=== PATIENT | male | born 1970 | race Caucasian/White ===

== ENCOUNTER 2017-08-28 09:40 | Emergency (ER) | payer BC ==
[~2017-08-28] VITALS: Ht 177.8 cm; Wt 90.6 kg
[2017-08-28 09:41] VITALS: Ht 177.8 cm; Wt 90.6 kg
[2017-08-28] MEDS ORDERED: LIDOCAINE HCL 1% 20 ML VIAL ONE (09:55)
[2017-08-28] MEDS ORDERED: XYLOCAINE 1%/SOD BICARB 20 ML VIAL INFIL ONE (09:57)
[2017-08-28 10:09] VITALS: TEMP 36.7
[2017-08-28] MEDS ORDERED: CEPH500C2 PO (10:44)
[2017-08-28 11:00] VITALS: BP 152/104; PULSE 106; O2SAT 96
--- NOTE | 2017-08-28 17:56 | EMERGENCY ROOM VISIT NOTE ---
ED Visit Note First contact with patient: 09:47 Chief Complaint: I cut my left thumb. History of Present Illness: Mr. Robles is a 47-year-old white male who ambulates into the ED complaining of a laceration to the left thumb. Patient reports proximal to 30 minutes ago he was cutting a zip tie off a flag and accidentally stabbed the lateral aspect of the thenar eminence of the left hand. He thought the puncture wound was 0.25-0.375 inches in depth. He does report he control bleeding prior to arrival at the hospital but did not wash the wound. Currently he is complaining of a stinging pain that is also throbbing. He rates his discomfort 5/10. His pain is nonradiating. His pain worsens with palpation. He has not identified any alleviating factors related to the pain. He has not taken any medications for pain prior to arrival at the hospital. Associated with his pain and injury he does report he has a tingling sensation in his thumb. Review of Systems: As noted above in history of present illness. Past Medical History: Patient denies. Current Medications: Patient denies. Allergies to Medications: Patient denies. Social History: Patient is currently employed; he feels safe in his home environment; he denies tobacco and alcohol use. Tetanus Immunization Status: Patient was unsure. Physical Examination: Vital Signs: Date Time Temp Pulse Resp B/P (MAP) Pulse Ox O2 Delivery O2 Flow Rate FiO2 08/28/17 11:00 106 20 152/104 96 08/28/17 10:09 36.7 08/28/17 09:41 77 18 152/96 95 Room Air GENERAL: 47-year-old male in mild distress due to pain, nontoxic-appearing, afebrile and hemodynamically stable. NEUROLOGICAL: Awake, alert and oriented to person, place and time. Answering questions appropriately and following commands. SKIN: Warm, dry and pink. Left Thumb: 1.4 cm puncture wound to the lateral aspect of thenar eminence. Minimal bleeding at this time. LEFT THUMB: Soft tissue injury as noted above. No gross bony deformity. Full range of motion of the thumb at the MCP and interphalangeal joint against resistance. Throughout the thumb the skin was warm and pink and capillary refill was brisk. He was able to distinguish light sensations through all dermatomes of the thumb. ED Course: Patient is assessed as noted above. Wound Repair: Complexity: Basic Verbal consent was obtained after the risks and benefits were explained. The skin was prepped with betadine and a sterile field set. Wound edges of the wound was anesthetized with 1.2 ml buffered 1% lidocaine. The wound was explored for foreign bodies and none found. Copious irrigation was performed using sterile saline. With direct pressure the bleeding subsided. Debridement was not performed. The wound edges were approximated using 5-0 Ethilon with 3 simple interrupted sutures. Hemostasis and excellent approximation was achieved. Antibacterial ointment and a sterile dressing applied. No complications and the patient tolerated the procedure well. Patient was educated about tonight's findings and instructed on his treatment plan; he verbalizes understanding and agreement with this plan. Clinical Impression: Puncture wound to the left thumb. Disposition: Patient discharged home in stable condition; prior to departure he was reassessed and subjectively reported he was pain-free. Plan: Comfort measures, wound care, and signs of infection were discussed with the patient. Patient was prescribed Keflex 500 mg 4 times a day for 5 days for antibiotic coverage. Patient was encouraged to follow-up with PCP or return to the ED for any signs of infection and/or suture removal in 10-12 days.
== END 2017-08-28 11:03 | disposition home or self-care (01) ==
LOC: C.EDB 09:41 → C.EDC 11:03
DX: S61.032A Puncture wound without foreign body of left thumb without damage to nail, initial encounter (principal); W45.8XXA Other foreign body or object entering through skin, initial encounter

== ENCOUNTER 2017-09-09 14:44 | Emergency (ER) | payer BC ==
[~2017-09-09] VITALS: Ht 180.3 cm; Wt 95.5 kg
[2017-09-09 14:46] VITALS: BP 158/93; PULSE 80; TEMP 36.7; O2SAT 100; Ht 180.3 cm; Wt 95.5 kg
--- NOTE | 2017-09-09 14:54 | EMERGENCY ROOM VISIT NOTE ---
ED Visit Note First contact with patient: 14:50 CHIEF COMPLAINT: Suture removal This patient returns to the ED today for removal of sutures that were placed Aug 28. There has been no swelling, redness, or drainage from the wound. The patient feels like the laceration is healing well. REVIEW OF SYSTEMS: Head: No headache, injury or neck pain. Skin: No rash, new lesions, or masses. General: No fever or chills, fatigue, loss of appetite , or significant recent weight gain or loss. PMH: The patient is healthy; there is no significant medical or surgical history. SOCIAL HISTORY: Patient lives at home. PHYSICAL EXAM: Vital Signs: Reviewed Nurse's notes. There is a sutured wound on the hand with no signs of infection. There is no erythema, swelling, or tenderness. EMERGENCY DEPARTMENT COURSE: The sutures were removed without any difficulty and there was no separation of the wound edges. Current/Historical Medications No Active Prescriptions or Reported Meds Allergies Coded Allergies: No Known Allergies (Unverified , 09/09/17) Vital Signs Date Time Temp Pulse Resp B/P (MAP) Pulse Ox O2 Delivery O2 Flow Rate FiO2 09/09/17 14:46 36.7 80 18 158/93 100 Room Air Departure Information Impression Primary Impression: Encounter for removal of sutures Dispostion Home / Self-Care Condition GOOD Prescriptions No Active Prescriptions or Reported Meds Referrals David Scott M.D. (MEDICAL) (PCP) Patient Instructions My [facility] Additional Instructions DISCHARGE INSTRUCTIONS AND TREATMENT: Wash any remaining crusts off of the wound today and resume your normal activities.
== END 2017-09-09 15:15 | disposition home or self-care (01) ==
LOC: C.EDB 14:45 → C.EDD 15:15
DX: S61.412A Laceration without foreign body of left hand, initial encounter (principal); X58.XXXD Exposure to other specified factors, subsequent encounter